=== PATIENT | female | born 1995 ===

== ENCOUNTER 2019-05-02 17:25 | Emergency (ER) | payer SELFPAY ==
[~2019-05-02] VITALS: Ht 157.5 cm; Wt 70.8 kg
[2019-05-02 17:25] VITALS: BP 128/84
== END 2019-05-02 20:13 | disposition left against medical advice (07) ==
LOC: M ED 17:25
DX: H93.90 Unspecified disorder of ear, unspecified ear (principal); Z53.21 Procedure and treatment not carried out due to patient leaving prior to being seen by health care provider